=== PATIENT | male | born 1930 | race Caucasian/White ===

== ENCOUNTER 2017-02-14 08:19 | Day surgery (SDC) | payer MEDICARE, OTHER ==
[~2017-02-14] VITALS: Ht 172.7 cm; Wt 83.5 kg
[~2017-02-14 08:19] MED LIST: ASPIRIN 81MG TA81 MG PO; BRILINTA90 MG PO; COREG CR20 MG PO; ECOTRIN81 MG PO; EXFORGE 5 MG-161 TAB PO; Isosorbide Mono60 MG PO; KEFLEX 500MG.500 MG PO; LOZOL1.25 MG PO; MULTIVITAMIN1 TA1 PO; PIOGLITAZONE15 MG PO; VYTORIN 10 MG-21 TAB PO
--- NOTE | 2017-02-14 14:09 | RADIOLOGY REPORT PS360 ---
CHEST-PORTABLE HISTORY: PERMANENT PACEMAKER PLACEMENT; AP CHEST ONLY VIEW ORDERING PHYSICIAN: Pete Rock MD PATIENT AGE: 86 years COMPARISON: 02/11/2017 FINDINGS: There has been interval insertion of a bipolar pacemaker from the left subclavian approach which is in good position. No evidence of pneumothorax.. The lungs are clear without infiltrates, suspicious nodules, or pleural effusions. No acute bony abnormalities. IMPRESSION: Interval pacemaker insertion otherwise negative
--- NOTE | 2017-02-14 14:09 | RADIOLOGY REPORT PS360 ---
PACEMAKER/DEFIBRILLATOR COMPARISON: 02/11/2017 HISTORY: Pacemaker placement FINDINGS: Limited AP view is submitted with the C-arm shows placement of a bipolar pacer. IMPRESSION: Bipolar pacer placement
[2017-02-15 07:12] VITALS: BP 96/61
--- NOTE | 2017-02-15 07:12 | Anesthesia Record ---
Anesthesia Record Part I Total IV fluids: 1000 EBL (ml): 25 Urine Output: 0 B/P: 96/61 % SaO2: 95 Pulse: 70 Resps: 16 Temp: 98.3 Patient is: Awake, Stable Stable to PACU at: 1126 (at [facility]) at 0712
--- NOTE | 2017-02-15 07:12 | Anesthesia Record ---
Anesthesia Record Part I Total IV fluids: 1000 EBL (ml): 25 Urine Output: 0 B/P: 96/61 % SaO2: 95 Pulse: 70 Resps: 16 Temp: 98.3 Patient is: Awake, Stable Stable to PACU at: 1126 (at [facility]) at 0712
--- NOTE | 2017-02-15 07:13 | Anesthesia Record ---
Anesthesia Record Part II Discharge time: 1126 Destination: Same day surgery PACU nurse assessment review? Yes (sds) Patient is: Awake, Stable Anesthesia complications? No at 0712
--- NOTE | 2017-02-16 15:14 | Operative Note ---
Pacemaker Procedure performed: Pacemaker placement Procedure 1. Pocket formation for PPM. 2. Placement of atrial sensing and pacing coil into the right atrial appendage. 3. Placement of ventricular sensing and pacing coil in the right ventricular apex. 4. Permanent PPM placement. Date of procedure: 02/14/17 Time: 1000 Preoperative Diagnosis: Sick Sinus Syndrome Syncope Indication for test: See above Complications: None EBL Less than 10 ml Technique: 1% Lidocaine with epinephrine used to anesthetize the left anterior aspect of the chest.Scalpel was used to make the initial cutaneous incision while electrocautery was used to dissect down into the fascia. The fascia was lifted off the pectoralis muscle and digitally manipulated creating a pocket for the pacemaker. The patient was then placed in Trendelenburg position and the subclavian vein was accessed via the Selinger technique. A 7 Greek sheath was placed under fluoroscopic guidance into the subclavian vein. Following this, an additional wire was placed into the sheath. Now, with two wires inside the 7 Greek sheath, this sheath was removed, maintaining the two wires in the subclavian vein. The sheath and dilator was then placed over one of the wires while keeping the other wire in place within the subclavian vein. The dilator was removed from the sheath. Using fluoroscopic guidance, the ventricular lead was placed into the right ventricular apex, screwed and secured into place. Electronic interrogation proved acceptable thresholds and voltage within the lead. Using 3-0 silk, the ventricular lead was then secured into place. Lead was secured to the fascia using the 3-0 silk. Following this, the sheath was pealed away. An additional 7 Greek fresh sheath and dilator was placed over the existing wire. Using fluoroscopic guidance, the atrial lead was then placed into the right atrial appendage and screwed and secured in place. Electrical interrogation demonstrated acceptable thresholds and voltage numbers. The atrial lead was then secured into place using 3-0 silk and then the lead was finally secured to the fascia. With both the atria and ventricular leads in place with acceptable thresholds and sensitivity, the atrial and ventricular leads were placed into the pacemaker generator. Pacemaker generator was then secured to the fascia using 3-0 silk. 1 gram of Ancef was used to flush the pocket. Following the pacemaker being secured to the fascia and in place, Monocryl was used to close the subcutaneous layers while yolis were used to close the cutaneous layer. A pressure dressing was placed and the patient was transferred to the postop holding area in stable condition for postoperative care. Impression: Successful implantation of permanent pacemaker Interrogation: Generator St[employer] Rajesh Model # [id number] Serial # [id number] RA Model # [id number] Serial # [id number] P-wave 1.7 Impedance 604 Threshold 0.6 Pulse Width 0.4 mA 0.9 RVA Model # [id number] Serial # [id number] R-wave 6.2 Impedance 988 Threshold 1.2 Pulse Width 0.6 mA Pacing Parameters: Mode: Base/Max Track: Max Sensor Therapies: Plan: Routine post op care. at [id number]
--- NOTE | 2017-02-16 15:14 | Operative Note ---
Pacemaker Procedure performed: Pacemaker placement Procedure 1. Pocket formation for PPM. 2. Placement of atrial sensing and pacing coil into the right atrial appendage. 3. Placement of ventricular sensing and pacing coil in the right ventricular apex. 4. Permanent PPM placement. Date of procedure: 02/14/17 Time: 1000 Preoperative Diagnosis: Sick Sinus Syndrome Syncope Indication for test: See above Complications: None EBL Less than 10 ml Technique: 1% Lidocaine with epinephrine used to anesthetize the left anterior aspect of the chest.Scalpel was used to make the initial cutaneous incision while electrocautery was used to dissect down into the fascia. The fascia was lifted off the pectoralis muscle and digitally manipulated creating a pocket for the pacemaker. The patient was then placed in Trendelenburg position and the subclavian vein was accessed via the Selinger technique. A 7 Lithuanian sheath was placed under fluoroscopic guidance into the subclavian vein. Following this, an additional wire was placed into the sheath. Now, with two wires inside the 7 Lithuanian sheath, this sheath was removed, maintaining the two wires in the subclavian vein. The sheath and dilator was then placed over one of the wires while keeping the other wire in place within the subclavian vein. The dilator was removed from the sheath. Using fluoroscopic guidance, the ventricular lead was placed into the right ventricular apex, screwed and secured into place. Electronic interrogation proved acceptable thresholds and voltage within the lead. Using 3-0 silk, the ventricular lead was then secured into place. Lead was secured to the fascia using the 3-0 silk. Following this, the sheath was pealed away. An additional 7 Lithuanian fresh sheath and dilator was placed over the existing wire. Using fluoroscopic guidance, the atrial lead was then placed into the right atrial appendage and screwed and secured in place. Electrical interrogation demonstrated acceptable thresholds and voltage numbers. The atrial lead was then secured into place using 3-0 silk and then the lead was finally secured to the fascia. With both the atria and ventricular leads in place with acceptable thresholds and sensitivity, the atrial and ventricular leads were placed into the pacemaker generator. Pacemaker generator was then secured to the fascia using 3-0 silk. 1 gram of Ancef was used to flush the pocket. Following the pacemaker being secured to the fascia and in place, Monocryl was used to close the subcutaneous layers while yolis were used to close the cutaneous layer. A pressure dressing was placed and the patient was transferred to the postop holding area in stable condition for postoperative care. Impression: Successful implantation of permanent pacemaker Interrogation: Generator St[employer] Rajesh Model # [id number] Serial # [id number] RA Model # [id number] Serial # [id number] P-wave 1.7 Impedance 604 Threshold 0.6 Pulse Width 0.4 mA 0.9 RVA Model # [id number] Serial # [id number] R-wave 6.2 Impedance 988 Threshold 1.2 Pulse Width 0.6 mA Pacing Parameters: Mode: Base/Max Track: Max Sensor Therapies: Plan: Routine post op care. at [id number]
[2017-02-19] MEDS ORDERED: ISOSORBIDE MONO60 M1 PO (12:16)
[2017-02-19] MEDS ORDERED: [UNRECOGNIZED DRUG - OTHER] PO (12:17)
[2017-02-20] MEDS ORDERED: LOPRESSOR 25MG.25 MG PO (17:25)
[2017-02-20] MEDS ORDERED: XARELTO10 MG PO (17:26)
== END 2017-02-14 14:20 | disposition home or self-care (01) ==
LOC: SDC 08:19
PROVIDERS: Internal Medicine
PROC: 02H63JZ Insertion of Pacemaker Lead into Right Atrium, Percutaneous Approach (ICD-10-PCS; 2017-02-14)
PROC: 02HK3JZ Insertion of Pacemaker Lead into Right Ventricle, Percutaneous Approach (ICD-10-PCS; 2017-02-14)
PROC: 0JH606Z Insertion of Pacemaker, Dual Chamber into Chest Subcutaneous Tissue and Fascia, Open Approach (ICD-10-PCS; principal; 2017-02-14 09:30)
DX: I49.5 Sick sinus syndrome (principal); I21.19 ST elevation (STEMI) myocardial infarction involving other coronary artery of inferior wall; I10 Essential (primary) hypertension; I25.10 Atherosclerotic heart disease of native coronary artery without angina pectoris; Z72.0 Tobacco use
CPT/HCPCS: C1785; C1898

== ENCOUNTER → 2017-07-18 | Outpatient (CLI) | payer MEDICARE, OTHER ==
[~2017-07-18] MED LIST changes: +ISOSORBIDE MONO60 M1 PO; +LOPRESSOR 25MG.25 MG PO; +XARELTO10 MG PO; +[UNRECOGNIZED DRUG - OTHER] PO
--- NOTE | 2017-07-18 09:49 | CARDIOVASCULAR REPORT ---
"Cerebrovascular Exam Indications: 785.9 Bruit. IMPRESSIONS 1. The bilateral vertebral arteries are patent with normal antegrade flow. 2. Study suggests 20-49% stenosis involving the left internal carotid artery. 3. Study suggests less than 20% stenosis involving the right internal carotid artery. History: Coronary artery disease. Risk factors: Hypertension. Carotid duplex study. Complete study and Doppler flow study including spectral analysis, color and parmar scale imaging. Location: Vascular laboratory. Patient status: Outpatient. Tables: Arterial flow: + +--------+--------+ |Location |V sys |V ed | + +--------+--------+ |Right CCA - proximal|71.7cm/s|13.8cm/s| + +--------+--------+ |Right CCA - distal |71.7cm/s|16.3cm/s| + +--------+--------+ |Right ECA |67.8cm/s|--------| + +--------+--------+ |Right ICA - proximal|76.7cm/s|20.7cm/s| + +--------+--------+ |Right ICA - mid |61.2cm/s|19.3cm/s| + +--------+--------+ |Right ICA - distal |45.8cm/s|19.9cm/s| + +--------+--------+ |Right vertebral |52.9cm/s|--------| + +--------+--------+ |Left CCA - proximal |72.8cm/s|18.7cm/s| + +--------+--------+ |Left CCA - distal |54.5cm/s|14.2cm/s| + +--------+--------+ |Left ECA |58.4cm/s|--------| + +--------+--------+ |Left ICA - proximal |91.5cm/s|26.7cm/s| + +--------+--------+ |Left ICA - mid |69.7cm/s|17.7cm/s| + +--------+--------+ |Left ICA - distal |57.6cm/s|18.8cm/s| + +--------+--------+ |Left vertebral |29.2cm/s|--------| + +--------+--------+ Velocity ratios: + + + + + + | |Right, V sys|Right, V ed|Left, V sys|Left, V ed| + + + + + + |Max ICA/dist CCA|1.07 |1.27 |1.68 |1.88 | + + + + + + (Report amended ) Electronically signed by: Dustin Jay [id number]"
== END ==
LOC: RT 08:42
DX: R09.89 Other specified symptoms and signs involving the circulatory and respiratory systems (principal); I65.23 Occlusion and stenosis of bilateral carotid arteries; I48.91 Unspecified atrial fibrillation; I25.10 Atherosclerotic heart disease of native coronary artery without angina pectoris; I10 Essential (primary) hypertension; E78.5 Hyperlipidemia, unspecified; Z95.0 Presence of cardiac pacemaker

== ENCOUNTER → 2017-07-20 | Outpatient (CLI) | payer MEDICARE, OTHER ==
[2017-07-20 11:20] LABS: BILIRUBIN, INDIRECT 0.55 mg/dL (0-0.9)
== END ==
LOC: LAB 09:24
PROVIDERS: Internal Medicine
DX: I48.91 Unspecified atrial fibrillation (principal); I25.10 Atherosclerotic heart disease of native coronary artery without angina pectoris; I10 Essential (primary) hypertension; I65.23 Occlusion and stenosis of bilateral carotid arteries; E78.5 Hyperlipidemia, unspecified; Z95.0 Presence of cardiac pacemaker

== ENCOUNTER → 2017-08-03 | Outpatient (CLI) | payer MEDICARE, OTHER ==
--- NOTE | 2017-08-03 12:52 | RADIOLOGY REPORT PS360 ---
History and Indications: History of GA, hypertension, family history, chest pain and fatigue Procedure: Patient received a 0.4 mg of Lexiscan, resting heart rate was 80 beats further, resting blood pressure 169/85, with Lexiscan maximum heart rate achieved was 80 bpm which is less than 85% of the maximum predicted heart rate and a blood pressure was 112/55. With Lexiscan patient complained of mild shortness of breath. Electrocardiogram: Resting electrocardiogram showed the atrial fibrillation, premature ventricular complex versus aberrantly conducted beats, intraventricular conduction delay. With Lexiscan there is less than 1.[address] segment depression noted from the baseline EKG. The EKG portion of the Lexiscan Myoview is nondiagnostic. Cardiac stress and resting SPECT images: Cardiac stress and rest SPECT images were obtained using technetium 99 Myoview 10.8 mCi at rest and 31.0 mCi at stress, gated SPECT further analysis of segmental wall motion and calculation of the ejection fraction also done. Cardiac stress and rest SPECT images show severely reduced tracer activity in the inferior and posterobasal wall in the fixed pattern is present with area of extensive prior myocardial scarring without significant derek-infarct ischemia. Computer derived ejection fraction is 45% with marked inferior and posterobasal wall hypokinesis. Right ventricle is mildly enlarged with normal contractility. Conclusion: 1. The EKG portion of the Lexiscan Myoview is nondiagnostic. 2. Scintigraphic evidence of extensive prior myocardial scarring involving the inferior and posterobasal wall without significant derek-infarct ischemia. Computer derived ejection fraction is 45% segmental wall motion abnormalities as described above, right ventricle is mildly enlarged with normal contractility. 3. Abnormal Lexiscan Myoview study.
== END ==
LOC: RAD 06:50
DX: R07.89 Other chest pain (principal); I25.10 Atherosclerotic heart disease of native coronary artery without angina pectoris; I10 Essential (primary) hypertension; I20.8 Other forms of angina pectoris; E78.5 Hyperlipidemia, unspecified
CPT/HCPCS: A9502; J2785